=== PATIENT | male | born 1990 | race Caucasian/White ===

== ENCOUNTER → 2019-10-22 11:46 | Outpatient (BNVA) | payer OTHER, SELFPAY | PROVIDERS: Family Provider Family Medicine; PCP Nurse Practitioner Family; Visit Provider Nurse Practitioner Family | DX: J02.9 Acute pharyngitis, unspecified (principal); H66.002 Acute suppurative otitis media without spontaneous rupture of ear drum, left ear; E10.65 Type 1 diabetes mellitus with hyperglycemia | CPT/HCPCS: 87071; 87880 ==

== ENCOUNTER → 2019-10-24 11:52 | Outpatient (BNVA) | payer OTHER, SELFPAY | PROVIDERS: Family Provider Family Medicine; PCP Nurse Practitioner Family; Visit Provider Nurse Practitioner Family | DX: J02.9 Acute pharyngitis, unspecified (principal) | CPT/HCPCS: 80053; 85025; 87635 ==

== ENCOUNTER → 2020-01-03 11:00 | Outpatient (BNVA) | payer OTHER, SELFPAY | PROVIDERS: Family Provider Family Medicine; PCP Nurse Practitioner Family; Referring Provider Nurse Practitioner Family; Visit Provider Internal Medicine | DX: E10.65 Type 1 diabetes mellitus with hyperglycemia (principal); E66.01 Morbid (severe) obesity due to excess calories; Z68.42 Body mass index [BMI] 45.0-49.9, adult; E78.2 Mixed hyperlipidemia; G47.33 Obstructive sleep apnea (adult) (pediatric); I10 Essential (primary) hypertension | CPT/HCPCS: 99204 ==

== ENCOUNTER → 2020-01-14 15:58 | Outpatient (BNVA) | payer OTHER, SELFPAY | PROVIDERS: Family Provider Family Medicine; PCP Nurse Practitioner Family; Visit Provider Nurse Practitioner Family | DX: J01.01 Acute recurrent maxillary sinusitis (principal); R05 Cough; Z68.42 Body mass index [BMI] 45.0-49.9, adult; Z71.89 Other specified counseling | CPT/HCPCS: 87635 ==

== ENCOUNTER 2020-01-18 14:53 | Emergency (ER) | payer OTHER, SELFPAY ==
[2020-01-18 15:03] VITALS: BP 165/106; PULSE 125; RESP 24; TEMP 37.1; O2SAT 97; BMI 48.8
[2020-01-18 15:12] VITALS: BP 165/106; PULSE 132; RESP 20; O2SAT 100
[2020-01-18 15:47] VITALS: BP 162/105; PULSE 128; RESP 20; O2SAT 96
--- NOTE | 2020-01-18 16:09 | XR_ITS ---
WS: [id number] Portable AP upright chest, 01/18/2020 Clinical Data: COVID+, SOB Comparison: Portable chest, 09/24/2016. Findings: No nodules, masses or effusions are seen. The heart is normal. The pulmonary vascularity is not increased. No pneumonia or pneumothorax is seen. There are monitor leads on the chest wall. XR/XR chest 1V portable [id number] Impression: Negative chest.
[2020-01-18 16:24] LABS: Basophils % 0.5 %; Eosinophils # 0.1 10^3/uL (0.0-0.8); Hematocrit 48.9 % (42.0-52.0); Hemoglobin 16.4 g/dL (11.7-16.6); Lymphocytes # 1.8 10^3/uL (0.8-4.8); Lymphocytes % 29.4 %; Mean Corpuscular HGB Conc 33.5 g/dL (30.0-36.0); Mean Corpuscular Hemoglobin 27.7 pg (28.0-34.0); Mean Corpuscular Volume 82.6 fL (80-94); Mean Platelet Volume 10.5 fL (7.4-10.4); Monocytes # 0.5 10^3/uL (0.2-0.9); Monocytes % 7.6 %; Neutrophils # 3.62 10^3/uL (1.8-7.7); Neutrophils % 60.7 %; Nucleated Red Blood Cells % 0 %; Platelet Count 195 10^3/cmm (130-400); Red Blood Count 5.92 10^6/uL (4.1-5.3); Red Cell Distribution Width 12.6 % (12.1-15.1)
[2020-01-18 16:52] LABS: Fibrinogen 707 mg/dL (174-498); INR 0.97 (0.8-1.2)
[2020-01-18 16:54] LABS: D Dimer 0.49 ug/mIFEU (0-0.59)
[2020-01-18 16:56] LABS: Lactic Sepsis W/Reflex 1.9 mmol/L (0.5-2.2)
[2020-01-18 17:01] LABS: Alanine Aminotransferase 20 U/L (0-41); Alkaline Phosphatase 87 IU/L (40-130); Anion Gap 16.2 (5-19); Aspartate Amino Transferase 24 U/L (0-40); Blood Urea Nitrogen 12 mg/dL (6-20); C Reactive Protein 37.6 mg/L (0.0-4.9); Calcium 9.3 mg/dL (8.5-10.5); Carbon Dioxide 21 mmol/L (22-29); Chloride 99 mmol/L (98-107); Ferritin 281 ng/mL (30-400); Globulin 3.7 g/dL (1.3-4.6); Glucose 254 mg/dL (65-115); Lactate Dehydrogenase 286 U/L (135-225); Osmolality Calculated 282 mOsm/kg (285-295); Potassium 4.2 mmol/L (3.5-5.1); Sodium 132 mmol/L (136-145); Total Bilirubin 0.6 mg/dL (0.15-1.2); Total Protein 7.7 g/dL (6.6-8.7)
[2020-01-18] MEDS: sodium chloride 0.9% 1,000 ML 999 ML IV ×2 (17:18→18:13)
[2020-01-18 17:20] LABS: Glucose Point of Care 164 mg/dL (70-110)
[2020-01-18 18:01] VITALS: BP 186/92; PULSE 122; RESP 20; O2SAT 96
--- NOTE | 2020-01-18 18:46 | ED_ITS ---
HPI - SOB/Dyspnea General: Chief Complaint: Shortness of Breath/Dyspnea Stated Complaint: SOB/ COVID POSITIVE Time Seen by Provider: 01/18/20 15:07 Source: patient Mode of arrival: EMS Limitations: no limitations History of Present Illness: HPI Narrative: 29-year-old gentleman with a history of type 1 diabetes mellitus and was diagnosed 4 days ago with COVID-19. Patient presents to the emergency department complaining of cough, shortness of breath, and vomiting. He denies diarrhea. He also has low grade fever. MD elicited complaint: shortness of breath and cough Context: recent illness Timing: intermittent Severity: mild Exacerbating factors: lying flat Relieving factors: upright position Associated symptoms: Reports cough, fever(s), nausea and vomiting; Deny abdominal pain, palpitations, polydipsia or polyuria Review of Systems General: Reports: 10 or more systems reviewed and unremarkable except in HPI and below Const: Reports: fever(s); Denies: chills or body aches Eyes: Denies: change in vision or blurry vision ENMT: Denies: throat pain, enlarged tonsils, odynophagia, hoarseness, mouth pain or swelling of lips/tongue Card: Denies: palpitations, irregular heart rhythm, edema or swelling of feet/ankles Resp: Reports: dyspnea and non-productive cough; Denies: productive cough GI: Reports: nausea and vomiting; Denies: abdominal pain or diarrhea : Denies: flank pain, dysuria, urinary frequency, urinary urgency or urinary hesitancy Musc: Denies: neck pain, back pain or extremity swelling Skin/Breast: Denies: rash, pruritus or erythema Neuro: Denies: headache(s), numbness in extremities or weakness in extremities Endo: Denies: polyuria, polydipsia or tired all the time PFSH ED PFSH: Medical History (Reviewed 01/18/20 @ 20:11 by Reginald Cabral MD, [facility] [place]) Essential (primary) hypertension Gastro-esophageal reflux disease with esophagitis Inappropriate sinus tachycardia Morbidly obese Snoring sleep study Thyroid nodule Type 1 diabetes mellitus with hyperglycemia Surgical History (Reviewed 01/18/20 @ 20:11 by Reginald Cabral MD, [facility] [place]) History of carpal tunnel release of both wrists Hx of appendectomy (~2008) Family History (Reviewed 01/18/20 @ 20:11 by Reginald Cabral MD, [facility] [place]) Family/Other Diabetes CAD (coronary artery disease) Hypertension Cancer Denies family history of Anesthesia complication Bleeding disorder Social History (Reviewed 01/18/20 @ 20:11 by Reginald Cabral MD, [facility] [place]) Smoking and tobacco status: never smoked Second hand smoke exposure: No Alcohol intake: never Adopted: No Household members: family Marital status: Number of children: 1 service: No Current occupational status: employed History of recent travel: No Current gender identity: Male Physical Exam Const: COMMON NORMALS: no acute distress, average body habitus, patient oriented x3, no limitations, healthy appearing, alert and well nourished HENMT: COMMON NORMALS: normocephalic, atraumatic and moist oral mucous membranes HEAD & SCALP: normocephalic and atraumatic Neck/C-Spine: COMMON NORMALS: no meningeal signs and no JVD Resp: COMMON NORMALS: normal respiratory effort, No retractions, No use of accessory muscles, clear to auscultation bilaterally and percussion normal AUSCULTATION: clear to auscultation bilaterally PERCUSSION: percussion normal Cardio: COMMON NORMALS: no JVD, regular rhythm, S1 normal heart sound present, S2 normal heart sound present, No gallops present (Cardio), No clicks present (Cardio), No murmurs present (Cardio), No rub (Cardio) and Peripheral pulses 2+ throughout RATE: tachycardic RHYTHM: regular rhythm HEART SOUNDS: S1 normal heart sound present and S2 normal heart sound present PERIPHERAL PULSES: Peripheral pulses 2+ throughout GI: COMMON NORMALS: Normal to inspection, nondistended, normoactive bowel sounds present, Soft to palpation, non-tender, No hepatosplenomegaly present, no masses and no bruits PALPATION: Yes Soft to palpation and Yes No hepatosplenomegaly present Extremity: COMMON NORMALS: normal to inspection, full ROM, capillary refill normal, no calf tenderness and no pedal edema Neuro: COMMON NORMALS: patient oriented x3 SENSORIUM/ORIENTATION: Yes alert MENINGEAL SIGNS: Yes no meningeal signs Skin: COMMON NORMALS: no rashes or lesions noted, no wounds, turgor normal, no jaundice, no petechiae and no mottling GENERAL SKIN EXAM: no rashes or lesions noted and turgor normal Course ED course: 29-year-old gentleman recently diagnosed with COVID-19 and was concerned because he had cough shortness of breath and he is diabetic. Evaluation in the emergency department is unremarkable with no signs of decompensation. He is discharged home with no new orders. Vital Signs: Vital signs: Vital Signs Temperature 98.6 F 01/18/20 19:04 Pulse Rate 115 H 01/18/20 19:04 Respiratory Rate 20 H 01/18/20 19:04 Blood Pressure 167/88 01/18/20 19:04 Pulse Oximetry 96 01/18/20 19:04 MDM - SOB/Dyspnea MDM Narrative: Medical decision making narrative: 29-year-old diabetic patient who presents with concerns of worsening COVID-19 infection. Evaluation in the emergency department was remarkably good and there is no indication for admission or more aggressive management. He is discharged home with no new orders other than antiemetic. Medical Records: Attestation: I reviewed the patient's medical records. Lab Data: Attestation: I reviewed the patient's lab results. Labs: Lab Results 01/18/20 01/18/20 01/18/20 Range/Units 15:30 15:30 15:30 WBC 6.0 (4.0-10.0) 10^3/ uL RBC 5.92 H (4.1-5.3) 10^6/u L Hgb 16.4 (11.7-16.6) g/dL Hct 48.9 (42.0-52.0) % MCV 82.6 (80-94) fL MCH 27.7 L (28.0-34.0) pg MCHC 33.5 (30.0-36.0) g/dL RDW 12.6 (12.1-15.1) % Plt Count 195 (130-400) 10^3/c mm MPV 10.5 H (7.4-10.4) fL Neut % (Auto) 60.7 % Lymph % (Auto) 29.4 % [place] % (Auto) 7.6 % Eos % (Auto) 1.0 % Baso % (Auto) 0.5 % Neut # (Auto) 3.62 (1.8-7.7) 10^3/u L Lymph # (Auto) 1.8 (0.8-4.8) 10^3/u L [place] # (Auto) 0.5 (0.2-0.9) 10^3/u L Eos # (Auto) 0.1 (0.0-0.8) 10^3/u L Baso # (Auto) 0.0 (0.0-0.1) 10^3/u L Nucleated RBC % (a uto) 0 % Nucleated RBCs # 0.0 /100WBC PT 13.20 (12.1-14.9) SECO NDS INR 0.97 (0.8-1.2) Fibrinogen 707 H (174-498) mg/dL D-Dimer 0.49 (0-0.59) ug/mIFE U Sodium 132 L (136-145) mmol/L Potassium 4.2 (3.5-5.1) mmol/L Chloride 99 (98-107) mmol/L Carbon Dioxide 21 L (22-29) mmol/L Anion Gap 16.2 (5-19) BUN 12 (6-20) mg/dL Creatinine 0.8 (0.7-1.2) mg/dL GFR Calculation 116.0 (90-130) mL/min Glucose 254 H (65-115) mg/dL POC Glucose (70-110) mg/dL Calculated Osmolal ity 282 L (285-295) mOsm/k g Lactic Acid (0.5-2.2) mmol/L Calcium 9.3 (8.5-10.5) mg/dL Ferritin 281 (30-400) ng/mL Total Bilirubin 0.6 (0.15-1.2) mg/dL AST 24 (0-40) U/L ALT 20 (0-41) U/L Alkaline Phosphata se 87 (40-130) IU/L Lactate Dehydrogen ase 286 H (135-225) U/L C-Reactive Protein 37.6 H (0.0-4.9) mg/L Total Protein 7.7 (6.6-8.7) g/dL Albumin 4.0 (3.5-5.2) g/dL Globulin 3.7 (1.3-4.6) g/dL 01/18/20 01/18/20 Range/Units 15:30 17:14 WBC (4.0-10.0) 10^3/ uL RBC (4.1-5.3) 10^6/u L Hgb (11.7-16.6) g/dL Hct (42.0-52.0) % MCV (80-94) fL MCH (28.0-34.0) pg MCHC (30.0-36.0) g/dL RDW (12.1-15.1) % Plt Count (130-400) 10^3/c mm MPV (7.4-10.4) fL Neut % (Auto) % Lymph % (Auto) % [place] % (Auto) % Eos % (Auto) % Baso % (Auto) % Neut # (Auto) (1.8-7.7) 10^3/u L Lymph # (Auto) (0.8-4.8) 10^3/u L [place] # (Auto) (0.2-0.9) 10^3/u L Eos # (Auto) (0.0-0.8) 10^3/u L Baso # (Auto) (0.0-0.1) 10^3/u L Nucleated RBC % (a uto) % Nucleated RBCs # /100WBC PT (12.1-14.9) SECO NDS INR (0.8-1.2) Fibrinogen (174-498) mg/dL D-Dimer (0-0.59) ug/mIFE U Sodium (136-145) mmol/L Potassium (3.5-5.1) mmol/L Chloride (98-107) mmol/L Carbon Dioxide (22-29) mmol/L Anion Gap (5-19) BUN (6-20) mg/dL Creatinine (0.7-1.2) mg/dL GFR Calculation (90-130) mL/min Glucose (65-115) mg/dL POC Glucose 164 (70-110) mg/dL Calculated Osmolal ity (285-295) mOsm/k g Lactic Acid 1.9 (0.5-2.2) mmol/L Calcium (8.5-10.5) mg/dL Ferritin (30-400) ng/mL Total Bilirubin (0.15-1.2) mg/dL AST (0-40) U/L ALT (0-41) U/L Alkaline Phosphata se (40-130) IU/L Lactate Dehydrogen ase (135-225) U/L C-Reactive Protein (0.0-4.9) mg/L Total Protein (6.6-8.7) g/dL Albumin (3.5-5.2) g/dL Globulin (1.3-4.6) g/dL Imaging Data^: CXR: Radiologist's impression: [address] [address] XRay Report Signed Patient: Jose Valladares #: [id number] : 1990Acct#:[id number] Age/Sex: 29 / MADM Date: 01/18/20 Loc: ERRoom/Bed: Attending Dr: Ordering Provider/Ordering MD: Reginald Cabral MD, [facility] Date of Service: 01/18/20 Procedure(s): XR chest 1V portable [id number] Accession Number(s): [id number] Report Number: [id number] WS: [id number] Portable AP upright chest, 01/18/2020 Clinical Data: COVID+, SOB Comparison: Portable chest, 09/24/2016. Findings: No nodules, masses or effusions are seen. The heart is normal. The pulmonary vascularity is not increased. No pneumonia or pneumothorax is seen. There are monitor leads on the chest wall. XR/XR chest 1V portable [id number] Impression: Negative chest. Dictated By:Yahaira Presley MD Signed By:Yahaira Presley MDSigned Date/Time:01/18/201625 DD/ 24 Discharge Plan Discharge Patient Disposition: Home Clinical Impression: COVID-19 virus infection Vomiting Qualifiers: Vomiting type: unspecified Vomiting Intractability: non-intractable Nausea presence: with nausea Qualified Code(s): R11.2 - Nausea with vomiting, unspecified Condition: Stable Prescriptions: New albuterol sulfate 90 mcg/actuation HFA aerosol inhaler 4 inh INHALATION Q4H PRN (Reason: shortness of breath or wheezing) Qty: 8.5 RF: 0 Zofran 4 mg tablet 4 mg PO Q8H PRN (Reason: nausea and vomiting) 5 Days Qty: 30 RF: 0 Continued cetirizine [Zyrtec] 10 mg tablet 10 mg PO DAILY RF: 0 (DME) Blood Glucose Test Strip See Rx Instructions .ROUTE .MEDSUPPLY Qty: 10 RF: 0 (DME) lancets [BD Ultra-Fine II Lancets] 30 gauge misc See Rx Instructions .ROUTE .MEDSUPPLY Qty: 25 RF: 0 albuterol sulfate [ProAir HFA] 90 mcg/actuation HFA aerosol inhaler 2 puff INHALATION QID PRN (Reason: shortness of breath or wheezing) Qty: 18 RF: 0 insulin lispro [Humalog U-100 Insulin] 100 unit/mL solution See Rx Instructions .ROUTE .COMPLEX RF: 0 (DME) FreeStyle Azra 2 Sensor Kit See Rx Instructions .ROUTE .MEDSUPPLY Qty: 3 RF: 3 (DME) FreeStyle Azra 2 Finley Misc See Rx Instructions .ROUTE .MEDSUPPLY Qty: 1 RF: 0 cephalexin [Keflex] 500 mg capsule 500 mg PO Q8H 10 Days Qty: 30 RF: 0 montelukast [Singulair] 10 mg tablet 10 mg PO DAILY Qty: 30 RF: 3 lisinopril 10 mg tablet 10 mg PO DAILY Qty: 30 RF: 3 hydrochlorothiazide 12.5 mg tablet 12.5 mg PO DAILY Qty: 30 RF: 3 fluoxetine [Prozac] 20 mg capsule 20 mg PO DAILY Qty: 30 RF: 5 Lantus Solostar U-100 Insulin 100 unit/mL (3 mL) insulin pen 35 unit SUBCUT BID Qty: 15 RF: 3 atorvastatin 20 mg tablet 20 mg PO DAILY Qty: 30 RF: 5 Ashw[place]ha See Rx Instructions .ROUTE .COMPLEX RF: 0 Multiple Vitamins Tablet 1 tab PO DAILY RF: 0 tadalafil 5 mg tablet 5 mg PO PRN MDD 1 tab RF: 0 Centrum Liquid See Rx Instructions .ROUTE .COMPLEX RF: 0 Vitamin C See Rx Instructions .ROUTE .COMPLEX RF: 0 Vitamin D3 See Rx Instructions .ROUTE .COMPLEX RF: 0 zinc See Rx Instructions .ROUTE .COMPLEX RF: 0 fluticasone propionate 50 mcg/actuation spray,suspension 2 spray INTRANASAL DAILY PRN (Reason: unknown) RF: 0 cholecalciferol (vitamin D3) 1,250 mcg (50,000 unit) capsule 50,000 unit PO Q7D RF: 0 Contrave 8-90 mg tablet extended release See Rx Instructions .ROUTE .COMPLEX RF: 0 Discharge Orders: Discharge Order (Routine); Ordered 01/18/20 Ordered By: Reginald Cabral Referrals: Iris Plaza FNP [Primary Care Provider] - 1-3 days Discharge Diet: Advance as tolerated and Usual diet Discharge Activity: Increase activity as tolerated Patient Instructions: Acute Nausea and Vomiting (ED) Activity Restrictions/Additional Instructions: Return for any new or worsening symptoms. Follow-up with your primary care provider within 3 days. Take the medication as needed for nausea. Use your breathing treatments as needed for shortness of breath Discharge Date/Time: 01/18/20 19:08 Coding Level of Care Code ED Quarantine Officer for Kerrie Santana
[2020-01-18 19:04] VITALS: BP 167/88; PULSE 115; RESP 20; TEMP 37; O2SAT 96
== END 2020-01-18 19:08 | disposition home or self-care (01) ==
PROVIDERS: Emergency Provider Family Medicine; PCP Nurse Practitioner Family
DX: U07.1 COVID-19 (principal); R11.2 Nausea with vomiting, unspecified; Z79.4 Long term (current) use of insulin; I10 Essential (primary) hypertension; E10.9 Type 1 diabetes mellitus without complications
CPT/HCPCS: 12345; 36416; 71045; 80053; 82728; 82962; 83605; 83615; 85025; 85378; 85384; 85610; 86140; 96360; 96361; 99283; 99284; J7030

== ENCOUNTER → 2020-01-30 14:29 | Outpatient (BNVA) | payer OTHER, SELFPAY | PROVIDERS: PCP Nurse Practitioner Family; Visit Provider Nurse Practitioner Family | DX: R05 Cough (principal); R51.9 Headache, unspecified | CPT/HCPCS: 71046 ==

== ENCOUNTER → 2020-05-09 10:32 | Outpatient (BNVA) | payer OTHER, SELFPAY | PROVIDERS: PCP Nurse Practitioner Family; Visit Provider Internal Medicine | DX: E10.649 Type 1 diabetes mellitus with hypoglycemia without coma (principal); E10.65 Type 1 diabetes mellitus with hyperglycemia; E66.01 Morbid (severe) obesity due to excess calories; Z68.42 Body mass index [BMI] 45.0-49.9, adult; E78.2 Mixed hyperlipidemia; G47.33 Obstructive sleep apnea (adult) (pediatric); I10 Essential (primary) hypertension | CPT/HCPCS: 95250; 99214 ==

== ENCOUNTER → 2020-05-20 15:36 | Outpatient (BNVA) | payer OTHER, SELFPAY | PROVIDERS: PCP Nurse Practitioner Family; Visit Provider Internal Medicine | DX: E10.649 Type 1 diabetes mellitus with hypoglycemia without coma (principal); E10.65 Type 1 diabetes mellitus with hyperglycemia; E66.01 Morbid (severe) obesity due to excess calories; Z68.42 Body mass index [BMI] 45.0-49.9, adult; I10 Essential (primary) hypertension | CPT/HCPCS: 95251; 99214 ==

== ENCOUNTER 2020-05-27 11:30 | Outpatient (CLI) | payer OTHER, SELFPAY | END 2020-05-27 11:31 | disposition home or self-care (01) | LOC: SLEEP 05-28 14:45 | PROVIDERS: PCP Nurse Practitioner Family; Visit Provider Internal Medicine | DX: G47.33 Obstructive sleep apnea (adult) (pediatric) (principal); R06.83 Snoring | CPT/HCPCS: G0399 ==

== ENCOUNTER → 2020-10-13 15:20 | Outpatient (BNVA) | payer OTHER, SELFPAY | PROVIDERS: PCP Nurse Practitioner Family; Visit Provider Nurse Practitioner Family | DX: R19.7 Diarrhea, unspecified (principal) | CPT/HCPCS: 82270 ==

== ENCOUNTER → 2021-02-12 17:10 | Outpatient (BNVA) | payer OTHER, SELFPAY | PROVIDERS: PCP Nurse Practitioner Family; Visit Provider Nurse Practitioner Family | DX: E11.649 Type 2 diabetes mellitus with hypoglycemia without coma (principal); E10.65 Type 1 diabetes mellitus with hyperglycemia; G47.33 Obstructive sleep apnea (adult) (pediatric); E55.9 Vitamin D deficiency, unspecified | CPT/HCPCS: 80053; 80061; 82306; 83036; 84443; 85025 ==

== ENCOUNTER → 2021-05-04 12:09 | Outpatient (BNVA) | payer OTHER, SELFPAY | PROVIDERS: PCP Nurse Practitioner Family; Visit Provider Nurse Practitioner Family | DX: Z20.822 Contact with and (suspected) exposure to COVID-19 (principal) | CPT/HCPCS: 87071; 87635; 87880 ==

== ENCOUNTER → 2022-03-08 16:11 | Outpatient (BNVA) | payer OTHER, SELFPAY | PROVIDERS: PCP Nurse Practitioner Family; Visit Provider Family Medicine | DX: R05.9 Cough, unspecified (principal); J02.9 Acute pharyngitis, unspecified; R50.9 Fever, unspecified | CPT/HCPCS: 87400; 87426 ==

== ENCOUNTER 2022-09-01 09:43 | Emergency (ER) | payer OTHER, SELFPAY ==
[2022-09-01 09:52] VITALS: BP 163/87; PULSE 88; RESP 18; TEMP 36.7; O2SAT 97
--- NOTE | 2022-09-01 10:07 | W.ED.ABDPA2 ---
HPI - Abdominal Pain General: Chief Complaint: Abdominal Pain Stated Complaint: lower right abd pain Time Seen by Provider: 09/01/22 09:59 Source: patient Mode of arrival: ambulatory History of Present Illness: 32-year-old male presents emergency room planing right lower quadrant abdominal pain. He states 5 days ago while he was out of state he began having some diarrhea. Since returning home he has had increasing abdominal pain denies hematochezia melena hematemesis coffee-ground emesis no dysuria urgency or frequency no hematuria. No fever. He has had loss of appetite. He had relegated his symptoms to something he had eaten. He also recently was started on Ozempic has had a couple of dose increases. He was seen 2 days ago by his doctor a lipase which was normal. MD elicited complaint: abdominal pain Pertinent past history: none Onset (ago): minute(s) Pain Consistency: constant Location: RLQ Severity: moderate Quality: cramping Radiation: none Exacerbating factors: nothing Relieving factors: nothing Associated Symptoms: Reports GI cramping, diarrhea and nausea; Denies anorexia, belching, bloating, change in bowel habits, change in stool character, chills, coffee ground emesis, constipation, dyspepsia, dysuria, excessive flatus, fever(s), heartburn, hematochezia, hematuria, hematemesis, fecal incontinence, loose stools, melena, poor appetite, syncope and vomiting Review of Systems Const: Denies: fever(s), chills, fatigue or malaise ENMT: Denies: throat pain, ear or mastoid pain, nasal discharge or nasal congestion Card: Denies: chest pain, palpitations or syncope Resp: Denies: dyspnea, productive cough or non-productive cough GI: Reports: abdominal pain, nausea, diarrhea and GI cramping; Denies: vomiting, hematemesis, coffee ground emesis, heartburn, constipation, bloating, belching, excessive flatus, fecal incontinence, change in bowel habits, change in stool character, hematochezia or melena : Denies: dysuria or hematuria Skin/Breast: Denies: rash or pruritus PFSH ED PFSH: Medical History Essential (primary) hypertension Gastro-esophageal reflux disease with esophagitis Inappropriate sinus tachycardia Morbidly obese Nocturnal hypoxemia Snoring sleep study Thyroid nodule Type 1 diabetes mellitus with hyperglycemia Surgical History History of carpal tunnel release of both wrists Hx of appendectomy (~2008) Family History Family/Other Diabetes CAD (coronary artery disease) Hypertension Cancer Denies family history of Anesthesia complication Bleeding disorder Social History Smoking and tobacco status: never smoked Second hand smoke exposure: No Alcohol intake: never Substance/Drug Use: never Adopted: No Household members: family Marital status: Number of children: 1 service: No Current occupational status: employed Current gender identity: Male Physical Exam Const: GENERAL APPEARANCE: cooperative and comfortable ORIENTATION/CONSCIOUSNESS: Yes awake, Yes oriented to person, Yes oriented to place and Yes oriented to time HENMT: COMMON NORMALS: normocephalic, atraumatic and hearing grossly normal bilaterally HEAD & SCALP: normocephalic and atraumatic Resp: COMMON NORMALS: normal respiratory effort, No retractions, No use of accessory muscles and clear to auscultation bilaterally AUSCULTATION: clear to auscultation bilaterally Cardio: COMMON NORMALS: regular rate, regular rhythm and No murmurs present (Cardio) RATE: regular rate RHYTHM: regular rhythm GI: COMMON NORMALS: No hepatosplenomegaly present AUSCULTATION: Yes normoactive bowel sounds PALPATION: Yes Tenderness to palpation present (GI) Details: RLQ, No Guarding due to palpation present (GI) and Yes No hepatosplenomegaly present Extremity: COMMON NORMALS: normal to inspection, capillary refill normal, no clubbing, cyanosis or edema, no calf tenderness and no pedal edema Neuro: SENSORIUM/ORIENTATION: Yes oriented to person, Yes oriented to place and Yes oriented to time Skin: COMMON NORMALS: no rashes or lesions noted GENERAL SKIN EXAM: no rashes or lesions noted Course Vital Signs: Vital signs: Vital Signs Temperature 98.0 F 09/01/22 09:52 Pulse Rate 86 09/01/22 12:52 Respiratory Rate 16 09/01/22 12:52 Blood Pressure 163/87 09/01/22 09:52 Pulse Oximetry 98 09/01/22 12:52 Oxygen Delivery Me thod Room Air 09/01/22 11:00 MDM - Abdominal Pain Medical Decision Making Labs and imaging reviewed no acute findings no perforation no bowel obstruction no nephrolithiasis renal abscess no hernia on exam. Patient does have moderate right-sided abdominal pain White count is normal urine is unremarkable. We will discharge patient home clear liquid diet nausea medication as needed if symptoms worsen or change return to the emergency room. No acute process noted at this time. Medical Records I reviewed the patient's medical records. Lab Data I reviewed the patient's lab results. 09/01/22 10:18 09/01/22 10:18 Labs/Radiology: Radiology Impressions Abdomen/Pelvis CT 09/01/22 10:17 IMPRESSION: No acute abdominopelvic abnormality identified. COMMENTS: Evaluation of solid organs and vascular structures is limited as no IV contrast was administered. Laboratory Results WBC 7.8 10^3/uL (4.0-10.0) 09/01/22 10:18 RBC 5.24 10^6/uL (4.1-5.3) 09/01/22 10:18 Hgb 14.7 g/dL (11.7-16.6) 09/01/22 10:18 Hct 44.2 % (42.0-52.0) 09/01/22 10:18 MCV 84.4 fl (80-94) 09/01/22 10:18 MCH 28.1 pg (28.0-34.0) 09/01/22 10:18 MCHC 33.3 g/dL (30.0-36.0) 09/01/22 10:18 RDW 13.2 % (12.1-15.1) 09/01/22 10:18 Plt Count 253 10^3/cmm (130-400) 09/01/22 10:18 MPV 9.4 fL (7.4-10.4) 09/01/22 10:18 Neut % (Auto) 62.0 % 09/01/22 10:18 Lymph % (Auto) 26.6 % 09/01/22 10:18 [place] % (Auto) 7.3 % 09/01/22 10:18 Eos % (Auto) 2.4 % 09/01/22 10:18 Baso % (Auto) 0.8 % 09/01/22 10:18 Neut # (Auto) 4.81 10^3/uL (1.8-7.7) 09/01/22 10:18 Lymph # (Auto) 2.1 10^3/uL (0.8-4.8) 09/01/22 10:18 [place] # (Auto) 0.6 10^3/uL (0.2-0.9) 09/01/22 10:18 Eos # (Auto) 0.2 10^3/uL (0.0-0.8) 09/01/22 10:18 Baso # (Auto) 0.1 10^3/uL (0.0-0.1) 09/01/22 10:18 Nucleated RBC % (auto) 0 % 09/01/22 10:18 Nucleated RBCs # 0.0 /100WBC 09/01/22 10:18 Sodium 140 mmol/L (136-145) 09/01/22 10:18 Potassium 4.0 mmol/L (3.5-5.1) 09/01/22 10:18 Chloride 104 mmol/L (98-107) 09/01/22 10:18 Carbon Dioxide 26 mmol/L (22-29) 09/01/22 10:18 Anion Gap 14.0 (5-19) 09/01/22 10:18 BUN 7 mg/dL (6-20) 09/01/22 10:18 Creatinine 0.8 mg/dL (0.7-1.2) 09/01/22 10:18 GFR Calculation 113.5 mL/min (90-130) 09/01/22 10:18 Glucose 118 mg/dL (65-115) H 09/01/22 10:18 Calculated Osmolality 289 mOsm/kg (285-295) 09/01/22 10:18 Calcium 8.6 mg/dL (8.5-10.5) 09/01/22 10:18 Total Bilirubin 0.4 mg/dL (0.15-1.2) 09/01/22 10:18 AST 19 U/L (0-40) 09/01/22 10:18 ALT 19 U/L (0-41) 09/01/22 10:18 Alkaline Phosphatase 97 U/L (40-130) 09/01/22 10:18 Total Protein 7.3 g/dL (6.6-8.7) 09/01/22 10:18 Albumin 4.1 g/dL (3.5-5.2) 09/01/22 10:18 Globulin 3.2 g/dL (1.3-4.6) 09/01/22 10:18 Lipase 10 U/L (13-60) L 09/01/22 10:18 Urine Color Yellow (Yellow) 09/01/22 12:07 Urine Appearance Clear (CLEAR) 09/01/22 12:07 Urine pH 5 (5-7) 09/01/22 12:07 Ur Specific [place] 1.020 (1.005-1.030) 09/01/22 12:07 Urine Protein Neg (Negative) 09/01/22 12:07 Urine Glucose (UA) Trace (Normal) H 09/01/22 12:07 Urine Ketones Negative (Negative) 09/01/22 12:07 Urine Blood Neg (Negative) 09/01/22 12:07 Urine Nitrate Negative (Negative) 09/01/22 12:07 Urine Bilirubin Neg (Negative) 09/01/22 12:07 Urine Urobilinogen Neg mg/dL (Negative) 09/01/22 12:07 Ur Leukocyte Esterase Negative (Negative) 09/01/22 12:07 Discharge Plan Discharge Patient Disposition: Home Clinical Impression: Abdominal pain Condition: Stable Prescriptions: No Action cetirizine [Zyrtec] 10 mg tablet 10 mg PO DAILY (DME) Blood Glucose Test Strip See Rx Instructions .ROUTE .MEDSUPPLY Qty: 10 Rx Instructions: As directed (DME) lancets [BD Ultra-Fine II Lancets] 30 gauge misc See Rx Instructions .ROUTE .MEDSUPPLY Qty: 25 Rx Instructions: As directed hydrochlorothiazide 12.5 mg tablet 12.5 mg PO DAILY Qty: 30 5RF ibuprofen 800 mg tablet 800 mg PO Q8H Qty: 30 0RF ondansetron HCl 8 mg tablet 8 mg PO Q8H Qty: 20 0RF (DME) FreeStyle Azra 2 Sensor Kit See Rx Instructions .ROUTE .MEDSUPPLY Qty: 6 3RF Rx Instructions: change every 14 days semaglutide 1 mg/dose (2 mg/1.5 mL) pen injector 1 mg SUBCUT Q7D 90 Days Qty: 9.75 0RF (DME) Dexcom G6 Route Sales Person Misc See Rx Instructions .ROUTE .MEDSUPPLY Qty: 1 0RF Rx Instructions: As directed ([facility] [place]) Dexcom G6 Sensor Device See Rx Instructions .ROUTE .MEDSUPPLY Qty: 3 0RF Rx Instructions: As directed (DME) Dexcom G6 Transmitter Device See Rx Instructions .ROUTE .MEDSUPPLY Qty: 1 0RF Rx Instructions: As directed ([facility] [place]) C Pap machine See Rx Instructions .Route .MEDSUPPLY Qty: 1 0RF Rx Instructions: C pap machine and supplies (DME) cpap 6-16 cm See Rx Instructions .Route .MEDSUPPLY Qty: 1 0RF Rx Instructions: As directed fluticasone propionate 50 mcg/actuation spray,suspension See Rx Instructions .ROUTE .COMPLEX Qty: 16 2RF Dose Instruction: USE 2 SPRAY(S) IN EACH NOSTRIL ONCE DAILY FOR 30 DAYS Rx Instructions: USE 2 SPRAY(S) IN EACH NOSTRIL ONCE DAILY FOR 30 DAYS Lantus Solostar U-100 Insulin 100 unit/mL (3 mL) insulin pen See Rx Instructions .ROUTE .COMPLEX Qty: 30 2RF Dose Instruction: INJECT 80 UNITS SUBCUTANEOUSLY EVERY DAY Rx Instructions: INJECT 80 UNITS SUBCUTANEOUSLY EVERY DAY insulin lispro [Humalog U-100 Insulin] 100 unit/mL solution See Rx Instructions .ROUTE .COMPLEX Qty: 40 1RF Dose Instruction: INJECT UP TO 45 UNITS SUBCUTANEOUSLY THREE TIMES DAILY Rx Instructions: INJECT UP TO 45 UNITS SUBCUTANEOUSLY THREE TIMES DAILY atorvastatin 20 mg tablet See Rx Instructions .ROUTE .COMPLEX Qty: 14 0RF Dose Instruction: Take 1 tablet by mouth once daily Rx Instructions: Take 1 tablet by mouth once daily montelukast 10 mg tablet See Rx Instructions .ROUTE .COMPLEX Qty: 14 0RF Dose Instruction: Take 1 tablet by mouth once daily Rx Instructions: Take 1 tablet by mouth once daily (DME) BD Insulin Syringe 1 mL 25 gauge x 5/8 syringe See Rx Instructions .Route Qty: 300 2RF Rx Instructions: use tid with insulin and As directed lisinopril 20 mg tablet See Rx Instructions .ROUTE .COMPLEX Qty: 14 0RF Dose Instruction: TAKE 1 TABLET BY MOUTH ONCE DAILY . APPOINTMENT REQUIRED FOR FUTURE REFILLS Rx Instructions: TAKE 1 TABLET BY MOUTH ONCE DAILY . Han See Rx Instructions .ROUTE .COMPLEX Rx Instructions: prn Multiple Vitamins Tablet 1 tab PO DAILY Centrum Liquid See Rx Instructions .ROUTE .COMPLEX Rx Instructions: pt states he drinks one tablespoon prn zinc See Rx Instructions .ROUTE .COMPLEX Rx Instructions: prn Discharge Orders: Discharge ED (Routine); Ordered 09/01/22 Ordered By: Brock Hoyt Referrals: Iris Plaza FNP [Primary Care Provider] - Discharge Diet: Usual diet Discharge Activity: Increase activity as tolerated Patient Instructions: Abdominal Pain (ED), Opioid Safety, Pain Management Activity Restrictions/Additional Instructions: You are seen today for abdominal pain CT of your abdomen was unremarkable and your laboratory tests CBC chemistry and liver functions and urinalysis were all normal as well. Clear liquid diet for next 24 to 48 hours advance as tolerated symptoms persist change or worsen recheck with either your primary care doctor or the emergency room. Coding Level of Care Code ED First Responder for Kerrie Santana
--- NOTE | 2022-09-01 10:17 | CTR_ITS ---
PROCEDURE INFORMATION: Exam: CT Abdomen And Pelvis Without Contrast Exam date and time: 09/01/2022 10:46 AM Age: 32 years old Clinical indication: Abdominal pain; Localized; Right lower quadrant (rlq); Prior surgery; Surgery date: 6+ months; Surgery type: Appy TECHNIQUE: Imaging protocol: Computed tomography of the abdomen and pelvis without contrast. Radiation optimization: All CT scans at this facility use at least one of these dose optimization techniques: automated exposure control; mA and/or kV adjustment per patient size (includes targeted exams where dose is matched to clinical indication); or iterative reconstruction. REPORTING DATA: Count of CT and Cardiac NM exams in prior 12 months: This patient has received 0 known CTs and 0 known cardiac nuclear medicine studies in the 12 months prior to the current study. COMPARISON: 1. CR XR chest 2V* [id number] 01/30/2020 2:35 PM 2. *CT Abdomen/Pelvis wwo 05/14/2011 2:48 PM RADIATION DOSE METRICS: Total DLP (mGy-cm): 1818.63 FINDINGS: Diaphragm: Stable 7 mm nodule in the posterior basal segment right lower lobe adjacent to the diaphragmatic margin, with possible partial calcification, likely a granuloma. Liver: The liver is normal in size and contour. Gallbladder and bile ducts: Gallbladder is not well distended. No pericholecystic fluid or fat stranding identified. Pancreas: The pancreas appears normal. Spleen: The spleen appears normal. Adrenal glands: The adrenals appear normal. Kidneys and ureters: The kidneys empty into non-dilated ureters. No renal or ureteral stones are identified. No perinephric or periureteral fat tissue stranding is identified. Stomach and bowel: The stomach is unremarkable. The small bowel loops are not abnormally dilated. The large bowel loops are not abnormally dilated. Appendix: The appendix is surgically absent. Intraperitoneal space: No ascites or significant fluid collection. Vasculature: The aorta is nonaneurysmal. The IVC appears normal. Lymph nodes: There are no enlarged lymph nodes. Urinary bladder: The bladder is distended and demonstrates no focal contour abnormality. Reproductive: Unremarkable as visualized. Bones/joints: Unremarkable. Soft tissues: Unremarkable. CT/CT abdomen pelvis wo con [id number] IMPRESSION: No acute abdominopelvic abnormality identified. COMMENTS: Evaluation of solid organs and vascular structures is limited as no IV contrast was administered.
[2022-09-01] MEDS: ondansetron 2 mg/ML SDV 2 mL 4 MG IVP (10:23)
[2022-09-01] MEDS: sodium chloride 0.9% 1,000 ML 999 ML IV (10:24)
[2022-09-01 10:28] LABS: Basophils # 0.1 10^3/uL (0.0-0.1); Basophils % 0.8 %; Eosinophils # 0.2 10^3/uL (0.0-0.8); Eosinophils % 2.4 %; Hematocrit 44.2 % (42.0-52.0); Hemoglobin 14.7 g/dL (11.7-16.6); Lymphocytes # 2.1 10^3/uL (0.8-4.8); Lymphocytes % 26.6 %; Mean Corpuscular HGB Conc 33.3 g/dL (30.0-36.0); Mean Corpuscular Hemoglobin 28.1 pg (28.0-34.0); Mean Corpuscular Volume 84.4 fl (80-94); Mean Platelet Volume 9.4 fL (7.4-10.4); Monocytes # 0.6 10^3/uL (0.2-0.9); Monocytes % 7.3 %; Neutrophils # 4.81 10^3/uL (1.8-7.7); Nucleated Red Blood Cells % 0 %; Platelet Count 253 10^3/cmm (130-400); Red Blood Count 5.24 10^6/uL (4.1-5.3); Red Cell Distribution Width 13.2 % (12.1-15.1); White Blood Count 7.8 10^3/uL (4.0-10.0)
[2022-09-01 10:51] LABS: Alanine Aminotransferase 19 U/L (0-41); Albumin Level 4.1 g/dL (3.5-5.2); Alkaline Phosphatase 97 U/L (40-130); Aspartate Amino Transferase 19 U/L (0-40); Blood Urea Nitrogen 7 mg/dL (6-20); Calcium 8.6 mg/dL (8.5-10.5); Carbon Dioxide 26 mmol/L (22-29); Chloride 104 mmol/L (98-107); Globulin 3.2 g/dL (1.3-4.6); Glomerular Filtration Rate 113.5 mL/min (90-130); Glucose 118 mg/dL (65-115); Lipase 10 U/L (13-60); Osmolality Calculated 289 mOsm/kg (285-295); Sodium 140 mmol/L (136-145); Total Bilirubin 0.4 mg/dL (0.15-1.2); Total Protein 7.3 g/dL (6.6-8.7)
[2022-09-01 11:00] VITALS: RESP 18; O2SAT 98
[2022-09-01 12:14] LABS: Add Urine Microscopic? NO; Charge for UA Resulting for Rev
[2022-09-01 12:28] LABS: Bilirubin Urine Neg (Negative); Blood Urine Neg (Negative); Glucose Urine UA Trace (Normal); Ketones Urine Negative (Negative); Leukocyte Esterase Urine Negative (Negative); Nitrate Urine Negative (Negative); Protein Urine Neg (Negative); Urine Appearance Clear (CLEAR); Urine Color Yellow (Yellow); Urobilinogen Urine Neg (Negative); pH Urine 5 (5-7)
[2022-09-01 12:52] VITALS: PULSE 86; RESP 16; O2SAT 98
== END 2022-09-01 13:02 | disposition home or self-care (01) ==
PROVIDERS: Emergency Provider Family Medicine; PCP Nurse Practitioner Family
DX: R10.31 Right lower quadrant pain (principal); Z79.4 Long term (current) use of insulin
CPT/HCPCS: 74176; 80053; 81003; 83690; 85025; 96374; 99285; J2405; J7030

== ENCOUNTER 2023-01-17 13:17 | Outpatient (CLI) | payer OTHER, SELFPAY ==
--- NOTE | 2023-01-17 13:30 | USCV_ITS ---
ConNoy priestshua Age: 32 Gender: M : 1990 Exam Date: 01/17/2023 13:25 Ordering Phys: Iris Plaza DEVICE TEST ENGINEER DEVICE TEST ENGINEER Technologist: CT Exam Location: [facility] [place] Indication: HISTORY: PROCEDURES: FINDINGS: The veins were found to be easily compressible with spontaneous blood flow. Non pulsatile flow pattern. No notable reflux was seen at this time. CONCLUSIONS No evidence of DVT in the above-mentioned identifiable veins. No significant venous reflux either in the deep or in the superficial veins, bilaterally. Dr Ashanti Bernal MD [facility] (Electronically Signed) Final Date: 17 January 2023 19:31 S
== END 2023-01-17 13:18 | disposition home or self-care (01) ==
PROVIDERS: PCP Nurse Practitioner Family; Visit Provider Nurse Practitioner Family
DX: R60.9 Edema, unspecified (principal)
CPT/HCPCS: 93970

== ENCOUNTER 2023-01-19 13:19 | Outpatient (CLI) | payer OTHER, SELFPAY ==
--- NOTE | 2023-01-19 13:30 | USCV_ITS ---
ConJose Age: 32 Gender: M : 1990 Exam Date: 01/19/2023 13:54 Ordering Phys: Iris PlazaP EGG TESTER Technologist: Shari Poon Exam Location: [facility] [place] Indication: Type 1 DM Swelling Risk Factors: DM Previous Vascular Surgery: None RIGHT LEFT BP: 100.0 / 51.00 BP: 110.0/ 68.00 0 0 Waveform Velocity (cm/s) Velocity (cm/s) Waveform Triphasic 155.4 Iliac Prox 186.8 Triphasic Iliac Mid Triphasic 132.1 150.4 121.2 Iliac Distal 129.9 110.3 FORESTER SILVIC[employer]URE 161.8 Triphasic 132.1 SFA Prox 150.4 Triphasic 115.0 SFA Mid 175.5 Triphasic 104.1 SFA Dist 105.6 65.8 POP 77.7 Triphasic 124.9 ELECTRONIC SCALE TESTER 101.0 Triphasic 86.0 DPA 132.1 1.2 COREEN 1.1 FINDINGS Triphasic arterial Doppler waveforms bilaterally Normal Doppler flow velocities No unstable plaque or stenotic lesions were noted Resting COREEN of 1.2 on the right and 1.1 on the left CONCLUSIONS 1. Normal resting ABIs bilaterally 2. Normal Doppler waveforms and velocities 3. No significant arterial obstruction, based on the above finding Dr Ashanti Bernal MD [facility] (Electronically Signed) Final Date: 20 January 2023 09:32 S
== END 2023-01-19 13:20 | disposition home or self-care (01) ==
PROVIDERS: PCP Nurse Practitioner Family; Visit Provider Nurse Practitioner Family
DX: R60.0 Localized edema (principal); E10.9 Type 1 diabetes mellitus without complications
CPT/HCPCS: 93925

== ENCOUNTER → 2023-02-07 11:10 | Outpatient (BNVA) | payer OTHER, SELFPAY | PROVIDERS: PCP Nurse Practitioner Family; Visit Provider Nurse Practitioner Family | DX: E78.5 Hyperlipidemia, unspecified (principal); I10 Essential (primary) hypertension; E10.65 Type 1 diabetes mellitus with hyperglycemia; J02.8 Acute pharyngitis due to other specified organisms; B96.89 Other specified bacterial agents as the cause of diseases classified elsewhere; R51.9 Headache, unspecified; E78.2 Mixed hyperlipidemia | CPT/HCPCS: 87486; 87581; 87633 ==

== ENCOUNTER 2023-08-23 15:25 | Emergency (ER) | payer OTHER, SELFPAY ==
--- NOTE | 2023-08-23 15:28 | XRR_ITS ---
PROCEDURE INFORMATION: Exam: XR Chest Exam date and time: 08/23/2023 3:42 PM Age: 33 years old Clinical indication: Pain; Angina pectoris; Additional info: Chest pain TECHNIQUE: Imaging protocol: Radiologic exam of the chest. Views: 1 view. COMPARISON: CR XR chest 2V* [id number] 01/30/2020 2:35 PM FINDINGS: Lungs: Lungs are clear. Pleural spaces: There is no pleural effusion or pneumothorax. Heart/Mediastinum: Cardiomediastinal contours are unremarkable. Bones/joints: Bones are unremarkable. XR/XR chest 1V portable [id number] IMPRESSION: No acute findings.
--- NOTE | 2023-08-23 15:31 | ECG_ITS ---
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 Measurements Intervals [place] Rate: 81 P: 18 WI: 169 QRS: 14 QRSD: 107 T: 15 QT: 357 QTc: 417 Interpretive Statements SINUS RHYTHM WITH SINUS ARRHYTHMIA INDETERMINATE AXIS INCOMPLETE RIGHT BUNDLE BRANCH BLOCK [90+ ms QRS DURATION, TERMINAL R IN V1/V2, 40+ ms S IN I/aVL/V4/V5/V6] Compared to ECG 09/24/2016 19:51:04 Indeterminate axis now present Incomplete right bundle-branch block now present Sinus tachycardia no longer present Atrial abnormality no longer present ST (T wave) deviation no longer present Early repolarization no longer present Electronically Signed On 08-23-2023 17:16:31 CDT by Johnny Gtz M.D. [email or web address] ([email or web address] by [id number]
[2023-08-23 15:36] VITALS: BP 146/85; PULSE 80; RESP 16; TEMP 36.2; O2SAT 98
[2023-08-23 16:26] LABS: Basophils # 0.1 10^3/uL (0.0-0.1); Basophils % 0.9 %; Eosinophils # 0.2 10^3/uL (0.0-0.8); Eosinophils % 2.4 %; Hematocrit 44.5 % (37-53); Lymphocytes # 2.4 10^3/uL (0.8-4.8); Mean Corpuscular HGB Conc 34.2 g/dL (30-55); Mean Corpuscular Hemoglobin 28.3 pg (27-33); Mean Corpuscular Volume 82.9 fl (82-101); Mean Platelet Volume 9.9 fL (7.4-10.4); Monocytes # 0.5 10^3/uL (0.2-0.9); Monocytes % 6.4 %; Neutrophils # 4.19 10^3/uL (1.8-7.7); Neutrophils % 56.6 %; Nucleated Red Blood Cells % 0 %; Platelet Count 264 10^3/cmm (157-399); Red Blood Count 5.37 10^6/uL (3.85-5.65); Red Cell Distribution Width 13.2 % (12.1-15.1)
[2023-08-23 16:46] LABS: Troponin(5th) Baseline 19 ng/L (0-15)
[2023-08-23 16:50] LABS: Alanine Aminotransferase 22 U/L (0-41); Albumin Level 4.3 g/dL (3.5-5.2); Alkaline Phosphatase 111 U/L (40-130); Aspartate Amino Transferase 17 U/L (0-40); Blood Urea Nitrogen 11 mg/dL (6-20); Carbon Dioxide 28 mmol/L (22-29); Chloride 100 mmol/L (98-107); Creatinine Clr Calc Pharmacy 191.2405; Globulin 3.2 g/dL (1.3-4.6); Glomerular Filtration Rate 98.4 mL/min (90-130); Glucose 200 mg/dL (65-115); Osmolality Calculated 291 mOsm/kg (285-295); Sodium 138 mmol/L (136-145); Total Bilirubin 0.6 mg/dL (0.15-1.2); Total Protein 7.5 g/dL (6.6-8.7)
--- NOTE | 2023-08-23 16:51 | ED_ITS ---
HPI - Chest Pain 2 General: Chief Complaint: Chest Pain Stated Complaint: chest pain, left arm pain, nausea Time Seen by Provider: 08/23/23 16:51 History of Present Illness: 33-year-old male presents emerged part w ith complaints of left anterior chest wall sharp stabbing pain that occurred while he was sitting on the phone at work. He states the pain was a tight pain and initially was a 5 out of 10. He states he also felt weak at that time, which has subsided since arrival to the emergency department. He denies shortness of breath or diaphoresis. He states he does not have a cardiac history but is a diabetic. Associated symptoms: Reports nausea; Deny palpitations Review of Systems 2 General: Reports: 10 or more systems reviewed and unremarkable except in HPI and below Card: Reports: chest pain; Denies: palpitations or irregular heart rhythm GI: Reports: nausea PFSH ED 2 PFSH: Medical History Nocturnal hypoxemia Morbidly obese Thyroid nodule Gastro-esophageal reflux disease with esophagitis Snoring sleep study Inappropriate sinus tachycardia Essential (primary) hypertension Type 1 diabetes mellitus with hyperglycemia Surgical History History of carpal tunnel release of both wrists Hx of appendectomy (~2008) Family History Family/Other Diabetes CAD (coronary artery disease) Hypertension Cancer Denies family history of Anesthesia complication Bleeding disorder Social History Smoking and tobacco/nicotine status: never used tobacco/nicotine Second hand smoke exposure: No Alcohol intake: never Substance/Drug Use: never Adopted: No Household members: family Marital status: Number of children: 1 service: No Current occupational status: employed Current gender identity: Male Physical Exam 2 Narrative: EXAM NARRATIVE: General: Alert, no acute distress. Skin: Warm, dry, Intact. Head: Normocephalic, atraumatic. Neck: Supple, trachea midline. Eye: Extraocular movements are intact. PERRLA Ears, nose, mouth and throat: mucosa moist. Cardiovascular: Regular, Normal peripheral perfusion. Respiratory: Lungs are clear to auscultation, respirations are non-labored, breath sounds are equal, Symmetrical chest wall expansion. Gastrointestinal: Soft, Nontender, Non distended, Normal bowel sounds. Musculoskeletal: Normal ROM, no deformity. Neurological: Alert and oriented, No focal neurological deficit observed. Psychiatric: Cooperative, appropriate mood & affect. Course 2 Vital Signs: Vital signs: Vital Signs Temperature 97.2 F L 08/23/23 15:36 Pulse Rate 79 08/23/23 19:00 Respiratory Rate 16 08/23/23 19:00 Blood Pressure 137/93 08/23/23 19:00 Pulse Oximetry 100 08/23/23 19:00 Oxygen Delivery Me thod Room Air 08/23/23 19:00 MDM - Chest Pain Medical Decision Making Physical exam completed and documented, I will obtain serial cardiac enzymes, serial twelve-lead EKGs, chest x-ray, CBC, CMP, urinalysis, B-type natriuretic peptide, PT/PTT/INR, and a chest x-ray. I have reviewed previous and pertinent medical records for assist in obtaining beneficial medical information to improved the care and treatment of the patient. Medical Records I reviewed the patient's medical records. Lab Data I reviewed the patient's lab results. 08/23/23 16:05 08/23/23 16:05 Radiology Impressions Chest X-Ray 08/23/23 15:28 IMPRESSION: No acute findings. Laboratory Results WBC 7.40 10^3/uL (3.29-11.43) 08/23/23 16:05 RBC 5.37 10^6/uL (3.85-5.65) 08/23/23 16:05 Hgb 15.20 g/dL (11.27-16.99) 08/23/23 16:05 Hct 44.5 % (37-53) 08/23/23 16:05 MCV 82.9 fl (82-101) 08/23/23 16:05 MCH 28.3 pg (27-33) 08/23/23 16:05 MCHC 34.2 g/dL (30-55) 08/23/23 16:05 RDW 13.2 % (12.1-15.1) 08/23/23 16:05 Plt Count 264 10^3/cmm (157-399) 08/23/23 16:05 MPV 9.9 fL (7.4-10.4) 08/23/23 16:05 Neut % (Auto) 56.6 % 08/23/23 16:05 Lymph % (Auto) 33.0 % 08/23/23 16:05 [place] % (Auto) 6.4 % 08/23/23 16:05 Eos % (Auto) 2.4 % 08/23/23 16:05 Baso % (Auto) 0.9 % 08/23/23 16:05 Neut # (Auto) 4.19 10^3/uL (1.8-7.7) 08/23/23 16:05 Lymph # (Auto) 2.4 10^3/uL (0.8-4.8) 08/23/23 16:05 [place] # (Auto) 0.5 10^3/uL (0.2-0.9) 08/23/23 16:05 Eos # (Auto) 0.2 10^3/uL (0.0-0.8) 08/23/23 16:05 Baso # (Auto) 0.1 10^3/uL (0.0-0.1) 08/23/23 16:05 Nucleated RBC % (auto) 0 % 08/23/23 16:05 Nucleated RBCs # 0.0 /100WBC 08/23/23 16:05 Sodium 138 mmol/L (136-145) 08/23/23 16:05 Potassium 4.2 mmol/L (3.5-5.1) 08/23/23 16:05 Chloride 100 mmol/L (98-107) 08/23/23 16:05 Carbon Dioxide 28 mmol/L (22-29) 08/23/23 16:05 Anion Gap 14.2 (5-19) 08/23/23 16:05 BUN 11 mg/dL (6-20) 08/23/23 16:05 Creatinine 0.9 mg/dL (0.7-1.2) 08/23/23 16:05 GFR Calculation 98.4 mL/min (90-130) 08/23/23 16:05 Glucose 200 mg/dL (65-115) H 08/23/23 16:05 POC Glucose 184 mg/dL (70-110) H 08/23/23 15:42 Calculated Osmolality 291 mOsm/kg (285-295) 08/23/23 16:05 Calcium 10.0 mg/dL (8.5-10.5) 08/23/23 16:05 Total Bilirubin 0.6 mg/dL (0.15-1.2) 08/23/23 16:05 AST 17 U/L (0-40) 08/23/23 16:05 ALT 22 U/L (0-41) 08/23/23 16:05 Alkaline Phosphatase 111 U/L (40-130) 08/23/23 16:05 Troponin T Baseline 19 ng/L (0-15) H 08/23/23 16:05 Troponin T 120 Minute 20.69 ng/L (0-15) H 08/23/23 18:00 Delta Troponin T 1.69 ABS# (0-10) 08/23/23 18:00 Total Protein 7.5 g/dL (6.6-8.7) 08/23/23 16:05 Albumin 4.3 g/dL (3.5-5.2) 08/23/23 16:05 Globulin 3.2 g/dL (1.3-4.6) 08/23/23 16:05 All radiology interpretation(s) finalized by discharge EKG Data EKG 1: Interpretation: Twelve-lead EKG obtained at 1734 demonstrates sinus rhythm with a incomplete right bundle branch block. Ventricular rate 75, MO interval 148, QRS duration 106, QT 367, QTc [address] elevation or depression to demonstrate acute ischemia or infarction at present. Discharge Plan Discharge Patient Disposition: Home Clinical Impression: Atypical chest pain Condition: Stable Prescriptions: No Action cetirizine [Zyrtec] 10 mg tablet 10 mg PO DAILY (DME) Blood Glucose Test Strip See Rx Instructions .ROUTE .MEDSUPPLY Qty: 10 Rx Instructions: As directed (DME) lancets [BD Ultra-Fine II Lancets] 30 gauge misc See Rx Instructions .ROUTE .MEDSUPPLY Qty: 25 Rx Instructions: As directed hydrochlorothiazide 12.5 mg tablet 12.5 mg PO DAILY Qty: 30 5RF ibuprofen 800 mg tablet 800 mg PO Q8H Qty: 30 0RF ondansetron HCl 8 mg tablet 8 mg PO Q8H Qty: 20 0RF Mounjaro 10 mg/0.5 mL pen injector 10 mg SUBCUT Q7D 30 Days Qty: 2.5 2RF Mounjaro 15 mg/0.5 mL pen injector 15 mg SUBCUT Q7D Qty: 2 0RF (DME) Dexcom G6 Liaison Inspection Laboratory Assistant Misc See Rx Instructions .ROUTE .MEDSUPPLY Qty: 1 0RF Rx Instructions: As directed ([facility]) Dexcom G6 Sensor Device See Rx Instructions .ROUTE .MEDSUPPLY Qty: 3 0RF Rx Instructions: As directed ([facility]) Dexcom G6 Transmitter Device See Rx Instructions .ROUTE .MEDSUPPLY Qty: 1 0RF Rx Instructions: As directed triamcinolone acetonide 0.1 % cream 1 applic topical BID 14 Days Qty: 80 1RF cephalexin 500 mg capsule 500 mg PO TID 10 Days Qty: 30 0RF ([facility]) C Pap machine See Rx Instructions .Route .MEDSUPPLY Qty: 1 0RF Rx Instructions: C pap machine and supplies ([facility]) cpap 6-16 cm See Rx Instructions .Route .MEDSUPPLY Qty: 1 0RF Rx Instructions: As directed ([facility]) insulin syringe-needle U-100 [BD Insulin Syringe Ultra-Fine] 1 mL 31 gauge x 5/16 syringe See Rx Instructions .ROUTE .COMPLEX Qty: 100 12RF Dose Instruction: USE DIRECTED THREE TIMES DAILY with insulin Rx Instructions: USE DIRECTED THREE TIMES DAILY with insulin fluticasone propionate 50 mcg/actuation spray,suspension See Rx Instructions .ROUTE .COMPLEX Qty: 16 2RF Dose Instruction: Use 2 spray(s) in each nostril once daily Rx Instructions: Use 2 spray(s) in each nostril once daily Mounjaro 5 mg/0.5 mL pen injector 5 mg SUBCUT .weekly 30 Days Qty: 2 0RF Rx Instructions: 5 mg weekly for 1 month montelukast 10 mg tablet See Rx Instructions .ROUTE .COMPLEX Qty: 30 2RF Dose Instruction: Take 1 tablet by mouth once daily Rx Instructions: Take 1 tablet by mouth once daily Lantus Solostar U-100 Insulin 100 unit/mL (3 mL) insulin pen See Rx Instructions .ROUTE .COMPLEX Qty: 30 2RF Dose Instruction: INJECT 80 UNITS SUBCUTANEOUSLY EVERY DAY Rx Instructions: INJECT 80 UNITS SUBCUTANEOUSLY EVERY DAY Mounjaro 7.5 mg/0.5 mL pen injector 7.5 mg SUBCUT Q7D 30 Days Qty: 2 1RF Rx Instructions: 7.5 mg weekly for 1 month and continue insulin lispro [Humalog U-100 Insulin] 100 unit/mL solution See Rx Instructions .ROUTE .COMPLEX Qty: 10 0RF Dose Instruction: INJECT UP TO 45 UNITS SUBCUTANEOUSLY THREE TIMES DAILY Rx Instructions: INJECT UP TO 45 UNITS SUBCUTANEOUSLY THREE TIMES DAILY Mounjaro 12.5 mg/0.5 mL pen injector 12.5 mg SUBCUT Q7D Qty: 2 0RF lisinopril 20 mg tablet See Rx Instructions .ROUTE .COMPLEX Qty: 14 0RF Dose Instruction: Take 1 tablet by mouth once daily Rx Instructions: Take 1 tablet by mouth once daily atorvastatin 20 mg tablet See Rx Instructions .ROUTE .COMPLEX Qty: 7 0RF Dose Instruction: Take 1 tablet by mouth once daily Rx Instructions: Take 1 tablet by mouth once daily Ashwagandha See Rx Instructions .ROUTE .COMPLEX Rx Instructions: prn Multiple Vitamins Tablet 1 tab PO DAILY Centrum Liquid See Rx Instructions .ROUTE .COMPLEX Rx Instructions: pt states he drinks one tablespoon prn zinc See Rx Instructions .ROUTE .COMPLEX Rx Instructions: prn Discharge Orders: Discharge ED (Routine); Ordered 08/23/23 Ordered By: Johnathan Batista Referrals: Johnny Gtz M.D [Physician] - Iris Plaza FNP [Primary Care Provider] - Discharge Diet: Usual diet Discharge Activity: Resume usual activity Patient Instructions: Opioid Safety, Pain Management Activity Restrictions/Additional Instructions: Activity Restrictions/Additional Instructions: Thank you for choosing [facility] for your healthcare needs today. Please realize that you were seen in the Emergency Department and that we are providing you with an emergency medical screening exam and this may not be a complete and all inclusive of all the testing and or medical work-up that you may need to determine your ailment or severity of your illness. It is very important that you follow-up as instructed with your Primary care provider or Specialist for additional evaluation and to discuss your medical treatment plan. Coding Level of Care Code ED Developer Designer for Kerrie Santana
[2023-08-23 17:02] LABS: Anion Gap 14.2 (5-19); Potassium 4.2 mmol/L (3.5-5.1)
[2023-08-23] MEDS: ondansetron 4 MG Tablet PO (17:14)
[2023-08-23 17:17] VITALS: BP 133/79; PULSE 83; RESP 21; O2SAT 98
--- NOTE | 2023-08-23 17:28 | ECG_ITS ---
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 Measurements Intervals Jackson Rate: 75 P: 11 MI: 148 QRS: 2 QRSD: 106 T: 13 QT: 367 QTc: 412 Interpretive Statements SINUS RHYTHM WITH SINUS ARRHYTHMIA INDETERMINATE AXIS PATTERN CONSISTENT WITH PULMONARY DISEASE INCOMPLETE RIGHT BUNDLE BRANCH BLOCK [90+ ms QRS DURATION, TERMINAL R IN V1/V2, 40+ ms S IN I/aVL/V4/V5/V6] Compared to ECG 08/23/2023 15:31:50 No significant changes Electronically Signed On 08-24-2023 17:00:37 CDT by Johnny Gtz M.D. [email or web address]
[2023-08-23 17:30] VITALS: BP 139/97; PULSE 89; O2SAT 100
[2023-08-23 18:03] VITALS: BP 140/102; PULSE 78; RESP 19; O2SAT 99
[2023-08-23 18:38] LABS: Glucose Point of Care 184 mg/dL (70-110)
[2023-08-23 19:00] VITALS: BP 137/93; PULSE 79; RESP 16; O2SAT 100
[2023-08-23 19:01] LABS: Troponin 5 2HR 20.69 ng/L (0-15); Troponin 5 2HR Delta 1.69 ABS# (0-10)
[2023-08-23 19:29] VITALS: BP 137/93; PULSE 80; O2SAT 99
== END 2023-08-23 19:30 | disposition home or self-care (01) ==
PROVIDERS: Physician Assistant; Emergency Provider Internal Medicine; PCP Nurse Practitioner Family
DX: R07.89 Other chest pain (principal); Z79.85 Long-term (current) use of injectable non-insulin antidiabetic drugs; Z79.4 Long term (current) use of insulin; I10 Essential (primary) hypertension; E10.9 Type 1 diabetes mellitus without complications
CPT/HCPCS: 36415; 36416; 71045; 80053; 82962; 84484; 85025; 93005; 99285; Q0162

== ENCOUNTER 2023-09-02 11:34 | Outpatient (CLI) | payer OTHER, SELFPAY ==
--- NOTE | 2023-09-02 | ECG_ITS ---
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 Interpretive Statements NAME OF STUDY: TREADMILL STRESS TEST INDICATION: [Chest Pain] EXERCISE DATA: The patient was exercised by Michael protocol. Baseline heart rate was 114 beats per minute. Baseline blood pressure was 132/96 millimeters of mercury. Maximal predicted heart rate was 189 beats per minute. Maximum heart rate achieved was 183, which was 96% of the maximum predicted heart rate. Maximum blood pressure was 154/68 millimeters of mercury. Total exercise time was 6 minutes. Maximum METs achieved was 7. The reason for ending the test was completion of protocol. The patient complained of shortness of breath and chest pain during the stress test, which then resolved at the end of the test. ELECTROCARDIOGRAM: BASELINE: Showed sinus tachycardia, normal axis, no significant ST-T changes at the baseline noted. [] EXERCISE: At the peak exercise level, [] No significant ST-T changes suggestive of ischemia noted. [] RECOVERY: During the recovery period, heart rate dropped appropriately. No significant ST-T changes in the recovery suggestive of ischemia noted. [] CONCLUSION: 1. Exercise capacity is fair 2. Heart rate response was apprpriate 3. Blood pressure response was appropriate 4. Symptoms not suggestive of ischemia. 5. Stress test is negative for ischemia Electronically Signed On 09-08-2023 16:24:05 CDT by Johnny Gtz M.D. [id number]
[2023-09-02 11:55] VITALS: BMI 43.0
[2023-09-02 12:43] VITALS: BP 154/99; PULSE 140
== END 2023-09-02 11:35 | disposition home or self-care (01) ==
PROVIDERS: PCP Nurse Practitioner Family; Visit Provider Nurse Practitioner Family
DX: R07.9 Chest pain, unspecified (principal)
CPT/HCPCS: 93017

== ENCOUNTER 2023-10-20 16:16 | Outpatient (CLI) | payer OTHER, SELFPAY ==
--- NOTE | 2023-10-20 16:00 | USR_ITS ---
PROCEDURE INFORMATION: Exam: US Duplex Left Lower Extremity Veins, Limited Exam date and time: 10/20/2023 4:19 PM Age: 33 years old Clinical indication: Pain; Leg, lower; Left; Additional info: M79.662 - pain in left lower leg, ref: [id number] TECHNIQUE: Imaging protocol: Real-time duplex ultrasound of the left extremity with 2-D hooks scale, color Doppler flow and spectral waveform analysis including responses to compression and other maneuvers (when performed) with image documentation. Limited exam focused on the left lower extremity veins. COMPARISON: CT abdomen pelvis wo con [id number] 09/01/2022 10:46 AM FINDINGS: Left deep veins: The common femoral, femoral, proximal profunda femoral and popliteal veins are patent without evidence of thrombus and demonstrate normal waveforms. Superficial veins: Saphenofemoral junction is patent without thrombus. No evidence of thrombophlebitis. Soft tissues: There is superficial soft tissue edema without discrete fluid collection. US/CV venous duplex [facility] [id number] IMPRESSION: 1. No sonographic evidence of deep venous thrombosis in the left lower extremity. 2. Superficial soft tissue edema. If there is concern for muscle or tendon pathology, follow-up postcontrast CT or MRI may be helpful.
[2023-10-20 16:58] LABS: Basophils # 0.1 10^3/uL (0.0-0.1); Basophils % 1.1 %; Eosinophils # 0.3 10^3/uL (0.0-0.8); Eosinophils % 4.7 %; Hematocrit 45.9 % (37-53); Lymphocytes # 2.2 10^3/uL (0.8-4.8); Lymphocytes % 30.6 %; Mean Corpuscular HGB Conc 33.3 g/dL (30-55); Mean Corpuscular Hemoglobin 27.6 pg (27-33); Mean Corpuscular Volume 82.7 fl (82-101); Mean Platelet Volume 9.6 fL (7.4-10.4); Monocytes # 0.4 10^3/uL (0.2-0.9); Monocytes % 5.6 %; Neutrophils # 4.05 10^3/uL (1.8-7.7); Neutrophils % 57.2 %; Nucleated Red Blood Cells % 0 %; Platelet Count 263 10^3/cmm (157-399); Red Blood Count 5.55 10^6/uL (3.85-5.65); Red Cell Distribution Width 12.9 % (12.1-15.1); White Blood Count 7.09 10^3/uL (3.29-11.43)
[2023-10-20 17:59] LABS: Alanine Aminotransferase 18 U/L (0-41); Albumin Level 4.2 g/dL (3.5-5.2); Alkaline Phosphatase 103 U/L (40-130); Anion Gap 18.3 (5-19); Aspartate Amino Transferase 16 U/L (0-40); Blood Urea Nitrogen 9 mg/dL (6-20); Calcium 9.7 mg/dL (8.5-10.5); Carbon Dioxide 24 mmol/L (22-29); Chloride 100 mmol/L (98-107); Globulin 3.6 g/dL (1.3-4.6); Glomerular Filtration Rate 98.4 mL/min (90-130); Glucose 285 mg/dL (65-115); Lipase 21 U/L (13-60); Magnesium 1.6 mg/dL (1.7-2.3); Osmolality Calculated 295 mOsm/kg (285-295); Potassium 4.3 mmol/L (3.5-5.1); Sodium 138 mmol/L (136-145); Total Bilirubin 0.6 mg/dL (0.15-1.2); Total Protein 7.8 g/dL (6.6-8.7)
== END 2023-10-20 16:17 | disposition home or self-care (01) ==
PROVIDERS: PCP Nurse Practitioner Family; Visit Provider Family Medicine
DX: M79.662 Pain in left lower leg (principal); M79.89 Other specified soft tissue disorders; R11.2 Nausea with vomiting, unspecified
CPT/HCPCS: 80053; 83690; 83735; 85025; 93971

== ENCOUNTER → 2023-11-21 09:52 | Outpatient (BNVA) | payer OTHER, SELFPAY | PROVIDERS: PCP Nurse Practitioner Family; Visit Provider Nurse Practitioner | DX: R39.9 Unspecified symptoms and signs involving the genitourinary system (principal) | CPT/HCPCS: 81000; 87086 ==

== ENCOUNTER → 2024-06-15 14:25 | Outpatient (BNVA) | payer OTHER, SELFPAY | PROVIDERS: Family Provider Nurse Practitioner Family; PCP Nurse Practitioner Family; Visit Provider Nurse Practitioner Family | DX: R05.9 Cough, unspecified (principal) | CPT/HCPCS: 87400 ==

== ENCOUNTER → 2024-10-31 15:21 | Outpatient (BNVA) | payer OTHER, SELFPAY | PROVIDERS: PCP Nurse Practitioner Family; Visit Provider Nurse Practitioner Family | DX: R53.83 Other fatigue (principal); J02.9 Acute pharyngitis, unspecified; E10.65 Type 1 diabetes mellitus with hyperglycemia; E78.2 Mixed hyperlipidemia; E66.01 Morbid (severe) obesity due to excess calories; Z68.42 Body mass index [BMI] 45.0-49.9, adult | CPT/HCPCS: 80053; 80061; 82043; 82306; 82607; 83036; 85025; 86308; 87071; 87426; 87880 ==